=== PATIENT | female | born 1970 | race Caucasian/White ===

== ENCOUNTER 2021-08-11 08:45 | Emergency (ER) | payer SELFPAY ==
[2021-08-11] MEDS ORDERED: HYDROmorphone 1 MG/ML Syringe IVPUSH ONE (09:33)
[2021-08-11] MEDS ORDERED: HYDROmorphone 0.5 MG/0.5 ML Syringe IVPUSH ONE ×2 (09:33→11:21)
[2021-08-11] MEDS ORDERED: LORazepam 2 MG/ML SDV IV ONE (09:33)
[2021-08-11] MEDS ORDERED: Metoclopramide 10 MG/2 ML SDV IVPUSH ONE (09:42)
[2021-08-11] MEDS ORDERED: Dextrose 5%-0.9% NaCl 1,000 ML IV SCH (09:45)
[2021-08-11 10:31] LABS: ESTIMATED GFR 89 mL/min (>60)
[2021-08-11] MEDS ORDERED: methylPREDNISolone Sodium Succinate 125 MG/2 ML SDV IVPUSH ONE (11:00)
== END 2021-08-11 12:35 | disposition home or self-care (01) ==
LOC: JD.ED 08:45
DX: M10.9 Gout, unspecified (principal); Z79.899 Other long term (current) drug therapy
CPT/HCPCS: 36415; 73562; 80053; 84550; 85025; 85379; 86140; 93971; 96374; 96375; 96376; 99284; J1170; J2060; J2765; J2930; J7042; 93010